=== PATIENT | female | born 1970 | race Caucasian/White ===

== ENCOUNTER → 2025-03-21 15:30 | Outpatient (REF) | payer BC, SELFPAY ==
[2025-03-27 03:28] LABS: HPV, High Risk Not Detected; HPV, High Risk Source Cervical
== END ==
LOC: REG 15:30
PROVIDERS: ATTENDING PHYSICIAN Obstetrics & Gynecology
DX: Z12.4 Encounter for screening for malignant neoplasm of cervix (principal)
CPT/HCPCS: 87624

== ENCOUNTER → 2025-08-26 13:17 | Outpatient (REF) | payer BC, SELFPAY ==
[2025-08-30 15:15] LABS: Blood Urea Nitrogen 19 mg/dl (7-17); Glucose 100 mg/dl (70-99); Sodium 141 mmol/L (135-145); eGFR > 60.00
[2025-08-30 15:16] LABS: Albumin 5.2 g/dl (3.5-5.0); Alkaline Phosphatase 142 U/L (38-126); Calcium 9.8 mg/dl (8.4-10.2); Carbon Dioxide 33 mmol/L (22-30); Chloride 101 mmol/L (98-107); Potassium 4.4 mmol/L (3.5-5.1); Total Protein 7.9 g/dl (6.3-8.2)
[2025-08-30 15:17] LABS: ALT (SGPT) 31 U/L (0-35); AST (SGOT) 28 U/L (14-36)
[2025-08-30 15:34] LABS: Hematocrit 40.4 % (37.0-47.0); Hemoglobin 14.2 g/dL (12.0-16.0); Mean Corp Hgb Conc. 35.1 g/dL (33.0-37.0); Mean Corpuscular Volume 88.0 fL (81.0-99.0); Platelet Count 238 10^3/uL (130-400)
[2025-08-30 15:36] LABS: Glycohemoglobin (HgbA1c) 5.6 % (4.0-5.9); Nucleated Red Blood Cells % 0 %
[2025-08-30 15:38] LABS: Red Cell Dist. Width 11.6 % (11.5-14.5)
[2025-08-30 15:45] LABS: HDL Cholesterol 45 mg/dl; LDL Cholesterol, Calculated 97 mg/dl; Very Low Density Lipoprotein 32 mg/dl (0-30)
[2025-08-30 16:40] LABS: Hepatitis C Antibody Negative (Negative)
== END ==
LOC: CLAB 13:17
PROVIDERS: ATTENDING PHYSICIAN Nurse Practitioner
DX: E78.2 Mixed hyperlipidemia (principal); R73.01 Impaired fasting glucose; Z00.00 Encounter for general adult medical examination without abnormal findings
CPT/HCPCS: 80053; 80061; 83036; 84443; 85025; 86803; 87389

== ENCOUNTER 2025-09-20 06:15 | Day surgery (SDC) | payer BC, SELFPAY ==
[2025-09-20 09:37] VITALS: BMI 28.8
[2025-09-20 09:38] VITALS: BMI 28.8
[2025-09-20 09:44] VITALS: BP 137/85
[2025-09-20 11:00] VITALS: BP 105/73
== END 2025-09-20 11:27 | disposition home or self-care (01) ==
LOC: SDS 06:15
PROVIDERS: ATTENDING PHYSICIAN Orthopaedic Surgery
DX: M65.341 Trigger finger, right ring finger (principal); M65.841 Other synovitis and tenosynovitis, right hand
CPT/HCPCS: 26055